=== PATIENT | male | born 1970 | race Caucasian/White ===

== ENCOUNTER 2025-03-24 21:11 | Inpatient (IN) | payer OTHER, SELFPAY ==
[~2025-03-24 21:11] MED LIST: Iopamidol 370 76% 100 ML VIAL ONE
[2025-03-24] MEDS ORDERED: Ketorolac Tromethamine 30 MG (1 mL) VIAL ONE (22:20)
[2025-03-24 22:49] LABS: #Basophils Less than 0.03 10x3/uL (0.0-0.2); #Eosinophils Less than 0.03 10x3/uL (0.0-0.5); #Monocytes 0.54 10x3/uL (0.0-1.1); #Neutrophils 9.19 10x3/uL (1.5-8.4); %Basophils 0.2 % (0.0-2.0); %Eosinophils 0.2 % (0.0-6.0); %Lymphocytes 6.9 % (18.0-47.0); %Monocytes 5.1 % (0.0-10.0); %Neutrophils 87.4 % (40.0-75.0); Hematocrit 46.9 % (38.8-50.0); Hemoglobin 16.6 g/dL (13.5-17.5); Mean Corpuscular Hemoglobin 31.3 pg (27.0-33.0); Mean Corpuscular Volume 88.3 fL (81.2-95.1); Platelet Count 146 10x3/uL (150-450); Red Blood Cell (RBC) Count 5.31 10x6/uL (4.32-5.72); White Blood Cell (WBC) Count 10.52 10x3/uL (3.5-10.5)
[2025-03-24 23:03] LABS: ALT (SGPT) 37 U/L (Less than 45); AST (SGOT) 21 U/L (11-34); Albumin 4.2 g/dL (3.1-4.5); Alkaline Phosphatase 63 U/L (40-110); Anion Gap 11 mmol/L (10-20); BUN (Urea Nitrogen) 12 mg/dL (8.4-25.7); Bilirubin, Total 1.3 mg/dL (0.3-1.2); Calc. Creatinine Clearance 0 mL/min (70-130); Calcium 10.1 mg/dL (7.8-10.44); Carbon Dioxide 26 mmol/L (22-29); Chloride 105 mmol/L (98-107); Globulin 2.5 g/dL (2.4-3.5); Glucose 110 mg/dL (70-105); Lipase 14 U/L (8-78); Potassium 4.2 mmol/L (3.5-5.1); Sodium 138 mmol/L (136-145)
[2025-03-24 23:10] LABS: Glucose, Urine (Dipstick) Normal (Negative); Leukocyte Negative (Negative); Protein, Urine (Dipstick) Negative (Neg-Trace); Specific Gravity, Urine 1.005 (1.005-1.030)
[2025-03-24 23:20] LABS: Bacteria/HPF Rare-Few HPF (None Seen); CAUTI Indications for Culture Acute Hematuria; RBC/HPF None Seen HPF (0-3); WBC/HPF None Seen HPF (0-3)
[2025-03-24 23:21] LABS: Urine Culture Reflex No No
[2025-03-25] MEDS ORDERED: Simethicone Chewable 80 MG TAB PO PRN (00:49)
[2025-03-25] MEDS ORDERED: Melatonin 3 MG TAB PO PRN (00:51)
[2025-03-25] MEDS ORDERED: Calcium Carbonate 500 MG ChewTAB PO PRN (00:51)
[2025-03-25] MEDS ORDERED: Electrolyte Replacement Protocol 1 EACH FS SCH (01:00)
[2025-03-25 02:08] VITALS: BMI 28.6
[2025-03-25] MEDS ORDERED: Potassium Chloride 20 MEQ in Premix 1 BAG IVPB PRN (02:15)
[2025-03-25] MEDS ORDERED: Magnesium 2 GM/50 ML(in water) 2 GM in Premix 1 BAG IVPB PRN (02:15)
[2025-03-25] MEDS ORDERED: PHOS-NAK 1 PKT PACK PO PRN (02:15)
[2025-03-25] MEDS: Lidocaine 2% Viscous Solution 10 ML, Aluminum & Magnesium Hydroxide 30 ML SSW SCH (02:27)
[2025-03-25] MEDS: Pantoprazole 40 MG VIAL IVP SCH (02:38)
[2025-03-25] MEDS: Ciprofloxacin Lactate/D5W 400 MG in Premix 1 BAG IVPB SCH (03:00)
[2025-03-25 05:31] LABS: #Basophils 0.03 10x3/uL (0.0-0.2); #Eosinophils Less than 0.03 10x3/uL (0.0-0.5); #Monocytes 0.62 10x3/uL (0.0-1.1); #Neutrophils 7.40 10x3/uL (1.5-8.4); %Basophils 0.3 % (0.0-2.0); %Eosinophils 0.1 % (0.0-6.0); %Lymphocytes 16.4 % (18.0-47.0); %Monocytes 6.4 % (0.0-10.0); %Neutrophils 76.7 % (40.0-75.0); Hematocrit 42.2 % (38.8-50.0); Hemoglobin 14.8 g/dL (13.5-17.5); Mean Corpuscular Hemoglobin 31.3 pg (27.0-33.0); Mean Corpuscular Volume 89.2 fL (81.2-95.1); Platelet Count 153 10x3/uL (150-450); Red Blood Cell (RBC) Count 4.73 10x6/uL (4.32-5.72); White Blood Cell (WBC) Count 9.65 10x3/uL (3.5-10.5)
[2025-03-25 05:37] LABS: ALT (SGPT) 29 U/L (Less than 45); AST (SGOT) 16 U/L (11-34); Albumin 3.5 g/dL (3.1-4.5); Alkaline Phosphatase 52 U/L (40-110); Anion Gap 9 mmol/L (10-20); BUN (Urea Nitrogen) 10 mg/dL (8.4-25.7); Bilirubin, Total 1.5 mg/dL (0.3-1.2); Calc. Creatinine Clearance 91 mL/min (70-130); Calcium 8.9 mg/dL (7.8-10.44); Carbon Dioxide 25 mmol/L (22-29); Chloride 108 mmol/L (98-107); Globulin 2.1 g/dL (2.4-3.5); Glucose 127 mg/dL (70-105); Potassium 4.0 mmol/L (3.5-5.1); Sodium 138 mmol/L (136-145)
[2025-03-25] MEDS: Multivit, Therapeutic 1 TAB PO SCH (09:40)
[2025-03-25] MEDS: Famotidine 20 MG TAB PO SCH (09:40)
[2025-03-25] MEDS: Aspirin 81 mg Enteric Coated Tablet PO SCH (09:40)
[2025-03-25] MEDS: Acetaminophen 325 MG TAB PO PRN (16:06)
[2025-03-25] MEDS: Ciprofloxacin 500 MG TAB PO SCH (20:23)
[2025-03-25] MEDS: Losartan 50 MG TAB PO SCH (20:23)
[2025-03-25] MEDS: metroNIDAZOLE 500 MG TAB PO SCH (20:23)
[2025-03-26] MEDS: Ondansetron PF 4 MG/2 ML Vial IVP PRN (06:09)
[2025-03-26 06:29] LABS: #Basophils 0.06 10x3/uL (0.0-0.2); #Eosinophils 0.07 10x3/uL (0.0-0.5); #Monocytes 0.47 10x3/uL (0.0-1.1); #Neutrophils 5.01 10x3/uL (1.5-8.4); %Basophils 0.9 % (0.0-2.0); %Eosinophils 1.0 % (0.0-6.0); %Lymphocytes 18.4 % (18.0-47.0); %Monocytes 6.8 % (0.0-10.0); %Neutrophils 72.6 % (40.0-75.0); Hematocrit 46.4 % (38.8-50.0); Hemoglobin 16.0 g/dL (13.5-17.5); Mean Corpuscular Hemoglobin 31.3 pg (27.0-33.0); Mean Corpuscular Volume 90.6 fL (81.2-95.1); Platelet Count 167 10x3/uL (150-450); Red Blood Cell (RBC) Count 5.12 10x6/uL (4.32-5.72); White Blood Cell (WBC) Count 6.90 10x3/uL (3.5-10.5)
[2025-03-26 16:50] VITALS: BP 138/80; TEMP 98.2
== END 2025-03-26 18:28 | disposition home or self-care (01) | DRG 392 ==
LOC: CSHERS 21:11 → CSHTELE 03-25 01:48
PROVIDERS: ADMIT Student in an Organized Health Care Education/Training Program; ATTEND Family Medicine
DX: K57.00 Diverticulitis of small intestine with perforation and abscess without bleeding (principal); K21.9 Gastro-esophageal reflux disease without esophagitis; I10 Essential (primary) hypertension; F10.90 Alcohol use, unspecified, uncomplicated; Z98.890 Other specified postprocedural states; Z79.82 Long term (current) use of aspirin; Z79.899 Other long term (current) drug therapy
CPT/HCPCS: 36415; 71045; 74177; 80053; 81001; 83605; 83690; 85025; 87040; 87428; 93005; J0744; J1885; J2272; J2405; J2470; J2543; J7030; Q9967